=== PATIENT | male | born 1975 | race Caucasian/White ===

== ENCOUNTER 2023-11-24 14:22 | Inpatient (IN) | payer BC ==
[~2023-11-24] VITALS: Ht 185.4 cm; Wt 88.3 kg
[2023-11-24] VITALS (9 sets, daily range): BP systolic 95–147; BP diastolic 58–103; PULSE 81–108; TEMP 98
[2023-11-24] MEDS ORDERED: Mag/Al Hydrox/Simeth Susp 30 ML CUP PO ONE (15:00)
[2023-11-24] MEDS ORDERED: dilTIAZem 25 MG/5 ML VIAL IV ONE (15:00)
[2023-11-24] MEDS ORDERED: Magnesium Sulfate 8% 50 ML IV ONE (15:00)
[2023-11-24] MEDS ORDERED: LR 1,000 ML IV ONE (15:00)
[2023-11-24] MEDS ORDERED: Pantoprazole 40 MG in NS 10 ML IV ONE (15:00)
[2023-11-24 15:03] LABS: BASO # 0.1 K/mm3 (0.0-0.2); BASO % 0.5 % (0.0-2.0); EOS # 0.3 K/mm3 (0.0-0.7); EOS % 2.6 % (0.0-4.0); GRAN # 8.6 K/mm3 (1.4-6.5); GRAN % 66.8 % (42.2-75.2); HEMATOCRIT 46.7 % (42.0-52.0); HEMOGLOBIN 16.3 g/dl (13.5-18.0); LYMPH % 23.6 % (20.0-51.0); MEAN CELL VOLUME 92 fl (80.0-100.0); MEAN CORPUSCULAR HEMOGLOBIN 32 pg (27-31); MEAN CORPUSCULAR HGB CONC 35 g/dl (33.0-37.0); MEAN PLATELET VOLUME 8.8 fl (7.4-10.4); MONO # 0.8 K/mm3 (0.1-0.6); MONO % 6.1 % (1.7-9.3); PLATELET COUNT 291 K/mm3 (130-400); RED BLOOD COUNT 5.06 M/mm3 (4.20-5.60); REDCELL DISTRIBUTION WIDTH-CV 12.3 % (11.5-14.5)
[2023-11-24 15:31] LABS: ALBUMIN 4.1 g/dL (3.5-5.0); BILIRUBIN,TOTAL 0.9 mg/dL (0.2-1.2); CALCIUM 10.7 mg/dL (8.4-10.2); CREATININE, serum 0.97 mg/dL (0.72-1.25); MAGNESIUM 1.6 mg/dL (1.6-2.6); POTASSIUM 3.5 mEq/L (3.5-4.5); TOTAL PROTEIN 7.1 g/dl (6.2-8.1)
[2023-11-24 15:50] LABS: TSH w REFLEX 1.267 uIU/mL (0.350-4.940)
[2023-11-24] MEDS ORDERED: Nicotine 21 MG DAILY PATCH TD SCH (17:02)
--- NOTE | 2023-11-24 18:20 | NUR ---
arrived on unit per WC and assisted into bed
--- NOTE | 2023-11-24 18:30 | NUR ---
resting in bed watching TV, at bedside, denies needs at this time
[2023-11-24] MEDS ORDERED: Heparin/D5W 250 ML IV SCH (18:45)
[2023-11-24] MEDS ORDERED: Heparin 5,000 UNITS/ML 1 ML VIAL IV PRN (18:45)
[2023-11-24] MEDS ORDERED: *Potassium Replacement Protocol MC SCH (18:45)
[2023-11-24] MEDS ORDERED: Heparin 5,000 UNITS/ML 1 ML VIAL IV ONE (18:45)
[2023-11-24] MEDS ORDERED: COZAAR 50MG50 MG/TAB PO (19:19)
[2023-11-24] MEDS ORDERED: NORVASC 10MG10 MG PO (19:19)
[2023-11-24 19:20] LABS: HEMATOCRIT 45.4 % (42.0-52.0); HEMOGLOBIN 15.9 g/dl (13.5-18.0); MEAN CELL VOLUME 93 fl (80.0-100.0); MEAN CORPUSCULAR HEMOGLOBIN 32 pg (27-31); MEAN CORPUSCULAR HGB CONC 35 g/dl (33.0-37.0); MEAN PLATELET VOLUME 8.7 fl (7.4-10.4); PLATELET COUNT 271 K/mm3 (130-400); RED BLOOD COUNT 4.91 M/mm3 (4.20-5.60); REDCELL DISTRIBUTION WIDTH-CV 12.5 % (11.5-14.5)
[2023-11-24] MEDS ORDERED: PRIL40 PO (19:20)
[2023-11-24 19:31] LABS: INR 0.9 (0.8-3.0); PROTHROMBIN TIME 10.4 SECONDS (9.7-12.8)
--- NOTE | 2023-11-24 22:31 | NUR ---
patient lying in bed, alert and oriented x4, arrived from ED around 1900. ambulates with steady gait. denies chest pain and shortness of breath. IV in RH with heparin gtt running at 1550 units/hr and cardizem gtt running at 5 mg/min y-sited per [facility] site patent, CDI. pt has no further needs, questions, or concerns at this time. call light within reach, will continue to monitor.
[2023-11-25] VITALS (13 sets, daily range): BP systolic 103–175; BP diastolic 66–89; PULSE 61–89; TEMP 98.3–99
[2023-11-25 01:11] LABS: URINE APPEARANCE CLEAR (CLEAR/HAZY); URINE BLOOD NEGATIVE (NEGATIVE); URINE COLOR YELLOW (YELLOW); URINE GLUCOSE NEGATIVE (NEGATIVE); URINE KETONE 1+ (NEGATIVE); URINE NITRATE NEGATIVE (NEGATIVE); URINE PROTEIN(semi-quant) NEGATIVE (NEGATIVE); URINE UROBILINOGEN 0.2 E.U/dL (0.2-1.0)
[2023-11-25 02:11] LABS: COLLECTION METHOD CLEAN CATCH
[2023-11-25 02:21] LABS: BASO # 0.1 K/mm3 (0.0-0.2); BASO % 0.9 % (0.0-2.0); EOS # 0.5 K/mm3 (0.0-0.7); EOS % 5.3 % (0.0-4.0); GRAN # 4.5 K/mm3 (1.4-6.5); GRAN % 46.6 % (42.2-75.2); HEMATOCRIT 44.3 % (42.0-52.0); HEMOGLOBIN 15.3 g/dl (13.5-18.0); LYMPH # 3.8 K/mm3 (1.2-3.4); LYMPH % 39.2 % (20.0-51.0); MEAN CELL VOLUME 92 fl (80.0-100.0); MEAN CORPUSCULAR HEMOGLOBIN 32 pg (27-31); MEAN CORPUSCULAR HGB CONC 35 g/dl (33.0-37.0); MEAN PLATELET VOLUME 9.1 fl (7.4-10.4); MONO # 0.8 K/mm3 (0.1-0.6); MONO % 7.7 % (1.7-9.3); PLATELET COUNT 276 K/mm3 (130-400); RED BLOOD COUNT 4.81 M/mm3 (4.20-5.60); REDCELL DISTRIBUTION WIDTH-CV 12.5 % (11.5-14.5)
[2023-11-25 02:44] LABS: ALBUMIN 3.6 g/dL (3.5-5.0); CALCIUM 9.7 mg/dL (8.4-10.2); CREATININE, serum 0.84 mg/dL (0.72-1.25); MAGNESIUM 2.2 mg/dL (1.6-2.6); PHOSPHOROUS 3.6 mg/dL (2.3-4.7); POTASSIUM 3.9 mEq/L (3.5-4.5)
[2023-11-25] MEDS ORDERED: Hydrocortisone 1% Cream 30 GM TUBE TP PRN (05:45)
[2023-11-25] MEDS ORDERED: 1/2 NS 1,000 ML IV PRN (06:00)
[2023-11-25 06:57] LABS: CALCIUM 9.5 mg/dL (8.4-10.2); CREATININE, serum 0.83 mg/dL (0.72-1.25); POTASSIUM 3.8 mEq/L (3.5-4.5)
[2023-11-25 07:11] LABS: PROTHROMBIN TIME 10.6 SECONDS (9.7-12.8)
[2023-11-25 07:20] LABS: THYROID STIMULATING HORMONE 0.999 uIU/mL (0.350-4.940)
[2023-11-25] MEDS ORDERED: NS 1,000 ML IV SCH (08:00)
--- NOTE | 2023-11-25 08:44 | NUR ---
Pt. sitting up in bed. Pt. is A&OX3, assessment complete. IV to rt. hand patent, Cardizem gtt and heparin Gtt infusing per orders. Pt. denies pain. Pt. voices understanding of being NPO. Pt. denies further needs, call light within reach.
[2023-11-25] MEDS ORDERED: Losartan 50 MG TAB PO SCH (09:00)
--- NOTE | 2023-11-25 09:30 | NUR ---
Pt. to the laboratory manager for cardioversion.
[2023-11-25] MEDS ORDERED: Lidocaine PF 2% (20 MG/ML) 5 ML VIAL ONE (09:44)
[2023-11-25] MEDS ORDERED: ePHEDrine 50 MG/ML VIAL ONE (09:45)
--- NOTE | 2023-11-25 10:15 | NUR ---
Pt. to the floor from greenhouse laborer. Pt. remains A&OX3. Vitals WNL.
[2023-11-25] MEDS ORDERED: Apixaban 5 MG TABLET PO SCH (10:17)
--- NOTE | 2023-11-25 11:09 | NUR ---
1030-PATIENT ALERT AND ORIENTED,DENIES PAIN OR NAUSEA. PT TRANSPORTED VIA BED AND TELEMETRY TO [facility], VITAL SIGNS TAKEN ON ARRIVAL. VSS. PATIENT PROVIDED PERSONAL BELONGINGS AND CALL LIGHT, BED IN LOWEST POSITION, X3 BEDRAILS IN PLACE. PLAN OF CARE DISCUSSED, QUESTIONS INVITED. TRANSFER OF CARE TO [facility].
[2023-11-25] MEDS ORDERED: TOPROL XL 50MG50 MG PO (12:10)
[2023-11-25] MEDS ORDERED: ELIQUIS 5MG PO (12:10)
--- NOTE | 2023-11-25 12:45 | NUR ---
Pt. sitting up in bed. Vitals stable. Pt. denies pain. Pt. has met discharge criteria. INT discontinued from rt. hand. Reviewed and given discharge packet. Pt. voices understanding. Pt. dressed and escorted out.
--- NOTE | 2023-11-25 13:33 | NUR ---
Cargo Service Agent met with patient to discuss discharge planning. Patient lives in [place] with his , Gill (ph#[phone]) and sees Dr. Rosales for primary care. Patient gets medications from [facility] on [address] and advised his BCBS covers his medications well. Patient's BCBS is through his employer, [employer]. Patient does not use any DME and is independent with ADLS. Patient does not have DPOA-HC and is not interested in creating one at this time. Patient plans to return home at time of discharge. Discharge Plan: Home
== END 2023-11-25 12:45 | disposition home or self-care (01) | DRG 310 ==
LOC: COL.ER 14:22 → MEDICAL 16:38
PROVIDERS: Emergency Medicine; Internal Medicine Interventional Cardiology; ADMIT Internal Medicine
PROC: 5A2204Z Restoration of Cardiac Rhythm, Single (ICD-10-PCS; principal; 2023-11-25)
DX: I48.91 Unspecified atrial fibrillation (principal); D72.829 Elevated white blood cell count, unspecified; K21.9 Gastro-esophageal reflux disease without esophagitis; I10 Essential (primary) hypertension; F17.210 Nicotine dependence, cigarettes, uncomplicated; G47.33 Obstructive sleep apnea (adult) (pediatric); Z79.899 Other long term (current) drug therapy
CPT/HCPCS: C9113; J1644; J2704; J3475; J7120